=== PATIENT | female | born 1955 | race Caucasian/White ===

== ENCOUNTER 2019-06-01 10:16 | Day surgery (SDC) | payer MEDICARE, MEDICAID ==
[~2019-06-01] VITALS: Ht 160 cm; Wt 61.2 kg
[2019-06-01] MEDS ORDERED: SACU1TAB7 MT (11:48)
[2019-06-01] MEDS ORDERED: LEVE10006 MT (11:48)
[2019-06-01] MEDS ORDERED: CARV3.1242 MT (11:48)
[2019-06-01] MEDS ORDERED: CALC667C MT (11:48)
[2019-06-01] MEDS ORDERED: OMEP20CA5 MT (11:48)
[2019-06-01] MEDS ORDERED: INSU100C6 SQ (11:48)
[2019-06-01] MEDS ORDERED: APIX2.5T MT (11:48)
[2019-06-01] MEDS ORDERED: LEVO75TA7 MT (11:48)
[2019-06-01] MEDS ORDERED: AMI2 MT (11:48)
[2019-06-01] MEDS ORDERED: ALLO100T MT (11:48)
[2019-06-01] MEDS ORDERED: ATOR-2 MT (11:48)
[2019-06-01] MEDS ORDERED: MULT-1203 MT (11:48)
[2019-06-01] MEDS ORDERED: IOHEXOL-350 100 ML BOTTLE ONE (12:08)
[2019-06-01 12:15] LABS: HEMATOCRIT 40.5 % (36.0-48.0); MEAN CORPUSCULAR HEMOGLOBIN 31.3 pg (28.0-32.0); MEAN CORPUSCULAR VOLUME 97.6 fL (81.0-99.0); PLATELET 144 x1000/uL (130-400); RED BLOOD CELL COUNT 4.15 mill/uL (4.2-5.4); RED CELL DISTRIBUTION WIDTH 18.9 % (11.6-14.6)
[2019-06-01 12:22] LABS: INR 1.1; PROTHROMBIN TIME 11.3 sec (9.6-11.0)
[2019-06-01] MEDS ORDERED: IODIXANOL 320MG/ML 100 ML BOTTLE IV ONE (12:49)
[2019-06-01] MEDS ORDERED: LIDOCAINE HCL 1% 20ML VIAL (Pyxis) INJ ONE (12:50)
[2019-06-01] MEDS ORDERED: FENTANYL CITRATE/PF 50MCG/ML 2ML VIAL ONE (12:55)
[2019-06-01] MEDS ORDERED: MIDAZOLAM HCL 2 MG/2 ML VIAL ONE (12:55)
[2019-06-01] MEDS ORDERED: ACETAMINOPHEN 325MG TABLET PO PRN (13:45)
[2019-06-01] MEDS ORDERED: ONDANSETRON HCL 4MG/2ML INJ IV PRN (13:45)
[2019-06-01] MEDS ORDERED: MORPHINE SULFATE 2 MG/ML CPJ (NOT FOR IM USE) IV PRN (13:45)
== END 2019-06-01 17:50 | disposition home or self-care (01) ==
LOC: CCL 10:16
PROVIDERS: ATTEND Internal Medicine Cardiovascular Disease
DX: R94.39 Abnormal result of other cardiovascular function study (principal); R07.9 Chest pain, unspecified; Z79.899 Other long term (current) drug therapy; Z79.4 Long term (current) use of insulin
CPT/HCPCS: 36415; 80048; 82962; 85027; 85610; 85730; 93005; 93458; 99152; C1760; C1769; C1887; C1893; J1644; J2250; J3010; J3490; Q9967

== ENCOUNTER 2019-06-08 07:35 | Day surgery (SDC) | payer MEDICARE, MEDICAID ==
[~2019-06-08] VITALS: Ht 160 cm; Wt 61.2 kg
[~2019-06-08 07:35] MED LIST: ACETYLCHOLINE CHLORIDE INTRAOCULAR SOLUTION 1:100 ELECTROLYTE DILUENT IO ONE; ALLO100T MT; AMI2 MT; APIX2.5T MT; ATOR-2 MT; BALANCED SALT IRRIG SOLN 15ML ONE; BUPIVACAINE HCL/PF 0.75% (7.5MG/ML) 10ML ONE; CALC667C MT; CARV3.1242 MT; CIPROFLOXACIN 0.3% OPHTH SOLN 2.5ML ONE; CYCLOPENTOLATE HCL 1% OPHTH DROPS 2ML LEFTEYE SCH; INSU100C6 SQ; LEVE10006 MT; LEVO75TA7 MT; LIDOCAINE HCL 2%/EPINEPHRINE 1:100,000 20 ML VIAL INFIL ONE; LIDOCAINE HCL/PF 2% 20 MG/ML 10ML VIAL ONE; MULT-1203 MT; NEO/POLYMYX B SULF/DEXAMETH OPHTH OINT 3.5GM ONE; OMEP20CA5 MT; PHENYLEPHRINE HCL 10% OPHTH DROPS 5ML LEFTEYE SCH; PREDNISOLONE ACETATE 1% OPHTH DROPS 5ML ONE; SACU1TAB7 MT; TETRACAINE 0.5% OPHTH DROPS 4ML ONE; TROPICAMIDE 1% OPHTH DROPS 15ML LEFTEYE SCH
[2019-06-08] MEDS ORDERED: BALANCED SALT IRRIG SOLN COMB1 500ML OP ONE (08:00)
[2019-06-08 09:24] LABS: BASOPHILS % 1.2 % (0.0-2.0); EOSINOPHILS % 4.8 % (0.0-5.0); HEMATOCRIT. 34.6 % (36.0-48.0); HEMOGLOBIN. 11.4 g/dL (12.0-16.0); MEAN CORPUSCULAR HEMOGLOBIN 31.8 pg (28.0-32.0); MEAN CORPUSCULAR VOLUME 96.8 fL (81.0-99.0); MEAN PLATELET VOLUME 9.7 fl (7.4-10.4); MONOCYTES % 8.1 % (2.0-8.0); NEUTROPHILS % 73.9 % (40.0-76.0); PLATELET 132 x1000/uL (130-400); RED BLOOD CELL COUNT 3.57 mill/uL (4.2-5.4); RED CELL DISTRIBUTION WIDTH 19.2 % (11.6-14.6)
[2019-06-08] MEDS ORDERED: HYALURONATE SODIUM 14 MG/ML 0.85ML SYRINGE IO ONE (10:24)
[2019-06-08] MEDS ORDERED: MIDAZOLAM HCL 2 MG/2 ML VIAL ONE (12:22)
[2019-06-08] MEDS ORDERED: DIPHENHYDRAMINE 50MG/ML VIAL ONE (12:23)
[2019-06-08] MEDS ORDERED: FENTANYL CITRATE/PF 50MCG/ML 2ML VIAL ONE (12:23)
[2019-06-08] MEDS ORDERED: SACU1TAB4 PO (15:28)
[2019-06-08] MEDS ORDERED: CYAN250010 PO (15:29)
== END 2019-06-08 17:25 | disposition home or self-care (01) ==
LOC: OR 07:35
PROVIDERS: ATTEND Ophthalmology
DX: E11.36 Type 2 diabetes mellitus with diabetic cataract (principal); E11.22 Type 2 diabetes mellitus with diabetic chronic kidney disease; H25.89 Other age-related cataract; I12.0 Hypertensive chronic kidney disease with stage 5 chronic kidney disease or end stage renal disease; N18.6 End stage renal disease; E03.9 Hypothyroidism, unspecified; F41.9 Anxiety disorder, unspecified; E78.00 Pure hypercholesterolemia, unspecified; Z79.899 Other long term (current) drug therapy; Z98.890 Other specified postprocedural states
CPT/HCPCS: 36415; 66984; 67005; 82962; 85025; C1893; J1200; J2250; J3010; J3490; J7040; V2630; V2632